=== PATIENT | female | born 1935 | race Caucasian/White ===

== ENCOUNTER 2017-08-25 14:15 | Emergency (ER) | payer MEDICARE ==
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
[2017-08-25 15:12] VITALS: BP 147/66; PULSE 56
--- NOTE | 2017-08-25 15:12 | XRAY ---
Indication: Great toe pain 1 year. No known injury. Comparison: None 3 nonweightbearing views of the left foot demonstrates moderate sized heel spurs. No other bony, articular, or soft tissue abnormalities.
[2017-08-25 15:17] VITALS: O2SAT 98
== END 2017-08-25 15:33 | disposition home or self-care (01) ==
LOC: ED 14:15
DX: M79.672 Pain in left foot (principal); G57.62 Lesion of plantar nerve, left lower limb
CPT/HCPCS: 73630; 99283

== ENCOUNTER 2018-10-05 19:01 | Emergency (ER) | payer MEDICARE ==
[2018-10-05 19:46] VITALS: BP 177/64; PULSE 59; O2SAT 95
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
== END 2018-10-05 20:40 | disposition left against medical advice (07) ==
LOC: ED 19:01
DX: R07.9 Chest pain, unspecified (principal); J45.909 Unspecified asthma, uncomplicated; M79.605 Pain in left leg; M79.604 Pain in right leg; N80.9 Endometriosis, unspecified; M19.90 Unspecified osteoarthritis, unspecified site; G47.30 Sleep apnea, unspecified; Z79.899 Other long term (current) drug therapy; I10 Essential (primary) hypertension
CPT/HCPCS: 93005; 99283

== ENCOUNTER 2020-07-11 19:22 | Emergency (ER) | payer MEDICARE ==
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
[2020-07-11 21:14] VITALS: BP 170/57; PULSE 56
[2020-07-11 21:17] VITALS: O2SAT 98
--- NOTE | 2020-07-12 09:08 | XRAY ---
Indication: Pain following fall 4 days ago. Comparison: December 06, 2009. AP pelvis and 2 view right hip now demonstrates moderate bilateral hip degenerative arthropathy, left greater than right. Incidental moderate lower lumbar degenerative spondylosis. No other bony, articular, or soft tissue abnormalities.
--- NOTE | 2020-07-12 09:10 | XRAY ---
Indication: Pain following fall 4 days ago. Comparison: None 3 view sacrum/coccyx demonstrates moderate lower lumbar degenerative spondylosis and moderate degenerative changes of both hips. No other bony, articular, or soft tissue abnormalities.
--- NOTE | 2020-07-12 09:10 | XRAY ---
Indication: Pain following fall 4 days ago. Multiple contiguous axial images obtained through the head without contrast. Comparison: None Age-appropriate global atrophy and mild periventricular degenerative micro-ischemia bilaterally. No acute intracranial hemorrhage, abnormal extra-axial fluid collection, or mass effect. Fourth ventricle is midline without hydrocephalus. Bony calvarium intact. Paranasal sinuses are clear with incidental bilateral ethmoid and maxillary sinus surgery. Mastoid air cells are pneumatized and clear. Impression: Nonacute senile brain.
== END 2020-07-11 21:24 | disposition home or self-care (01) ==
LOC: ED 19:22
DX: M25.551 Pain in right hip (principal); M53.3 Sacrococcygeal disorders, not elsewhere classified; S70.01XA Contusion of right hip, initial encounter; S30.0XXA Contusion of lower back and pelvis, initial encounter; R51.9 Headache, unspecified; W18.31XA Fall on same level due to stepping on an object, initial encounter; I10 Essential (primary) hypertension; M85.80 Other specified disorders of bone density and structure, unspecified site; Z79.899 Other long term (current) drug therapy
CPT/HCPCS: 70450; 72220; 73502; 99284

== ENCOUNTER 2024-02-04 15:24 | Emergency (ER) | payer MEDICARE ==
[2024-02-04 15:41] VITALS: TEMP 98
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
[2024-02-04] MEDS ORDERED: Sodium Chloride 0.9% 1000 ML 1,000 ML ONE (16:36)
[2024-02-04 16:42] LABS: Hematocrit 30.4 % (34.1-44.9); Hemoglobin 9.3 g/dL (11.2-15.7); Mean Cell Volume 75.1 fL (79.4-94.8); Mean Corpuscular Hgb Concent. 30.6 g/dL (32.2-35.5); Platelet Count 151 x10^3/uL (182-369); Red Blood Count 4.05 x10^6/uL (3.93-5.22); Red Cell Distribution Width 16.6 % (11.7-14.4); White Blood Count 2.3 x10^3/uL (3.98-10.04)
[2024-02-04] MEDS: Sodium Chloride 0.9% 1000 ML 1,000 ML IV STA (16:46)
--- NOTE | 2024-02-04 16:50 | XRAY ---
Indication: Short of breath. Cough. Comparison: November 19, 2013 PA/lateral chest again hyperinflated. New minimal left costophrenic angle infiltrate/atelectasis. Remaining heart and lungs unremarkable. Bony thorax intact again with osteopenia, degenerative changes, and dextroscoliosis.
[2024-02-04 16:53] LABS: ALBUMIN 3.5 g/dL (3.5-5.0); ANION GAP 10.9 MEQ/L (5-15); BILIRUBIN,TOTAL 0.4 mg/dL (0.2-1.3); Calcium 8.8 mg/dL (8.4-10.2); Creatinine 1 1.14 mg/dL (0.52-1.04); EST GLOMERULAR FILTRATION RATE 46.6 ML/MIN; MAGNESIUM 2.2 mg/dL (1.6-2.3); Potassium 5.1 mmol/L (3.5-5.1); Total Protein 6.2 g/dL (6.3-8.2)
[2024-02-04 16:59] LABS: ANISOCYTOSIS 2+; ATYPICAL LYMPHS 1 %; Lymphocytes 43 % (24-44); Monocyte 7 % (0.0-12.0); Neutrophils 49 % (1.56-6.13); Total Cells Counted 100
[2024-02-04 17:00] LABS: Platelet Estimate NORMAL (NORMAL); Toxic Granulation 1+
[2024-02-04 17:19] LABS: INFLUENZA A NEGATIVE (NEGATIVE); INFLUENZA B NEGATIVE (NEGATIVE); RESPIRATORY SYNCTIAL VIRUS NEGATIVE (NEGATIVE)
[2024-02-04 17:20] LABS: SARS-CoV-2 Xpert Express POSITIVE (NEGATIVE)
[2024-02-04] MEDS ORDERED: ROCEPHIN 1 GM / 100 ML NaCl 1 GM/100 ML IVPB IV ONE (17:25)
[2024-02-04] MEDS ORDERED: PROVENTIL 2.5 MG/3 ML NEB IH ONE (17:26)
[2024-02-04] MEDS: ROCEPHIN 1 GM / 100 ML NaCl 1 GM/100 ML IVPB IV ONE (17:26)
[2024-02-04] MEDS: PROVENTIL 2.5 MG/3 ML NEB IH ONE (17:28)
[2024-02-04] MEDS ORDERED: Zithromax 500 MG/ 250 ML NaCl Premix 500 MG/250 ML IVPB IV ONE (18:02)
[2024-02-04] MEDS: Zithromax 500 MG/ 250 ML NaCl Premix 500 MG/250 ML IVPB IV STA (18:04)
[2024-02-04 18:41] LABS: Appearance Clear (Clear); Bacteria Many /HPF (None Seen); Bilirubin Negative (Negative); Blood Negative (Negative); Epithelial Cells None Seen /HPF (None Seen); Glucose, Urine Negative (Negative); Hyaline Casts NONE SEEN /LPF (0-2); Ketones Negative (Negative); Leukocyte Esterase Trace (Negative); Nitrite Positive (Negative); Ph 5.5 (4.6-8.0); Protein,Urine Dip Negative (Negative); RBC 0-2 /HPF (0-5); Urobilinogen 0.2 mg/dL (0.2)
[2024-02-04 18:43] LABS: ADD URINE CULTURE? YES (NO)
[2024-02-04 19:11] VITALS: BP 135/52; PULSE 55; RESP 23; O2SAT 97
== END 2024-02-04 19:20 | disposition home or self-care (01) ==
LOC: ED 15:24
DX: U07.1 COVID-19 (principal); J12.82 Pneumonia due to coronavirus disease 2019; R05.1 Acute cough; E78.5 Hyperlipidemia, unspecified; I10 Essential (primary) hypertension; Z79.899 Other long term (current) drug therapy
CPT/HCPCS: 0241U; 36415; 71046; 80053; 81001; 83735; 84484; 85025; 86308; 87077; 87086; 87186; 87651; 93005; 94640; 96360; 96365; 96367; 99284; J0456; J0696; J7609; A9270-GY

== ENCOUNTER 2024-11-06 18:56 | Emergency (ER) | payer MEDICARE | END 2024-11-06 19:40 | disposition left against medical advice (07) | LOC: ED 18:56 | DX: Z53.21 Procedure and treatment not carried out due to patient leaving prior to being seen by health care provider (principal) ==